=== PATIENT | male | born 1995 | race Caucasian/White ===

== ENCOUNTER 2021-09-24 11:42 | Emergency (ER) | payer OTHER | END 2021-09-24 12:35 | disposition home or self-care (01) | LOC: MW.ED 11:42 | DX: S82.392A Other fracture of lower end of left tibia, initial encounter for closed fracture (principal); W18.30XA Fall on same level, unspecified, initial encounter | CPT/HCPCS: 29515; 73610-26-LT; 73610-LT; 99283-25 ==

== ENCOUNTER 2021-10-01 08:42 | Day surgery (SDC) | payer OTHER ==
[~2021-10-01 08:42] MED LIST: Albuterol 0.083% 2.5 MG/3 ML Neb Soln NEB PRN; HYDROmorphone 1 MG/ML Syringe IVPUSH PRN; Lactated Ringers 1,000 ML IV SCH; Metoclopramide 10 MG/2 ML SDV IVPUSH PRN; Morphine 4 MG/ML VIAL IVPUSH PRN; Naloxone 0.4 MG/ML SDV IVPUSH PRN; Ondansetron 4 MG/2 ML SDV IVPUSH PRN; Ropivacaine/Ketorolac/Ketamine 100-15-30/50 ML Syringe INJECT ONE; Scopolamine 1.5 MG Transdermal Patch ONE; ceFAZolin 2 GM in Premix Bag 1 BAG IV SCH; fentaNYL 100 MCG/2 ML SDV IVPUSH PRN; fentaNYL 100 MCG/2 ML SDV ONE
[2021-10-01] MEDS ORDERED: Propofol 200 MG/20 ML SDV ONE (08:54)
[2021-10-01] MEDS ORDERED: fentaNYL 100 MCG/2 ML SDV ONE (08:54)
[2021-10-01] MEDS ORDERED: Midazolam 1 MG/ML 2 ML SDV ONE (08:55)
[2021-10-01] MEDS ORDERED: ceFAZolin 1 GM Vial ONE (09:47)
[2021-10-01] MEDS ORDERED: Octyl 2-Cyanoacrylate 1 Tube ONE (09:48)
[2021-10-01] MEDS ORDERED: Bupivacaine 0.25%/EPINEPHrine 1:200,000 10 ML SDV ONE (09:48)
[2021-10-01] MEDS ORDERED: Rocuronium 100 MG/10 ML MDV ONE (10:25)
[2021-10-01] MEDS ORDERED: HYDROmorphone 2 MG/ML Syringe ONE ×2 (11:11→11:37)
[2021-10-01] MEDS ORDERED: Ondansetron 4 MG/2 ML SDV ONE (11:15)
[2021-10-01] MEDS ORDERED: Ketorolac 30 MG/ML SDV ONE (11:15)
[2021-10-01] MEDS ORDERED: Acetaminophen/oxyCODONE 325-5 MG Tab PO ONE (12:28)
== END 2021-10-01 13:10 | disposition home or self-care (01) ==
LOC: MW.SDS 08:42
PROVIDERS: ATTEND Orthopaedic Surgery
DX: S82.52XA Displaced fracture of medial malleolus of left tibia, initial encounter for closed fracture (principal); Z79.899 Other long term (current) drug therapy
CPT/HCPCS: 76000; 76000-26; A9270-GY; C1713; C1769; J0690; J1170; J1885; J2250; J2405; J2704; J3010; J3490; J7120

== ENCOUNTER 2024-02-11 01:51 | Emergency (ER) | payer OTHER | END 2024-02-11 03:12 | disposition home or self-care (01) | LOC: MW.ED 01:51 | DX: L03.114 Cellulitis of left upper limb (principal); F17.210 Nicotine dependence, cigarettes, uncomplicated | CPT/HCPCS: 99283 ==

== ENCOUNTER 2025-04-03 16:14 | Emergency (ER) | payer SELFPAY ==
[2025-04-03 16:36] LABS: BASOPHILS ABSOLUTE AUTO 0.04 K/uL (0.00-0.20); BASOPHILS PERCENT AUTO 0.4 % (0.0-1.0); EOSINOPHILS ABSOLUTE AUTO 0.53 K/uL (0.00-0.45); EOSINOPHILS PERCENT AUTO 4.8 % (0.0-6.0); IMMATURE GRAN ABSOLUTE AUTO 0.08 K/uL (0.00-0.05); IMMATURE GRAN PERCENT AUTO 0.7 % (0.0-0.4); LYMPHOCYTES ABSOLUTE AUTO 2.40 K/uL (1.00-4.80); LYMPHOCYTES PERCENT AUTO 21.8 % (24.0-44.0); MEAN PLATELET VOLUME 10.0 fL (9.4-12.4); MONOCYTES ABSOLUTE AUTO 0.67 K/uL (0.00-0.80); MONOCYTES PERCENT AUTO 6.1 % (0.0-8.0); NEUTROPHILS ABSOLUTE AUTO 7.29 K/uL (1.80-7.70); NEUTROPHILS PERCENT AUTO 66.2 % (41.0-71.0); NRBC ABSOLUTE 0.00 K/uL (0.00-0.02); NRBC PERCENT 0.0 /100WBC (0.0-0.2); PLATELET COUNT,PLT 349 K/uL (150-400); RED BLOOD CELL COUNT 4.92 M/uL (4.52-5.90); WHITE BLOOD CELL COUNT,WBC 11.01 K/uL (3.9-11.3)
[2025-04-03] MEDS: LORazepam 2 MG/ML SDV IVPUSH ONE ×3 (16:40→17:06)
[2025-04-03 17:13] LABS: A/G RATIO 1.0 (0.9-1.6); ALANINE AMINOTRANSFERASE,ALT 121.0 IU/L (14-63); ASPARTATE AMNIOTRANSFERASE,AST 63.0 IU/L (15-37); BILIRUBIN TOTAL 0.2 mg/dL (0.2-1.0); BLOOD UREA NITROGEN,BUN 15.0 mg/dL (7.0-18.0); CARBON DIOXIDE,CO2 29.9 mmol/L (21.0-32.0); CHLORIDE,CL 103.0 mmol/L (98-107); CREATININE 0.9 mg/dL (0.8-1.3); EST CRCL DRUG DOSING (CG) 126.17 mL/min; GLUCOSE RANDOM 134.0 mg/dL (74-106); POTASSIUM,K 3.8 mmol/L (3.5-5.1); PRO B-TYPE NATRIUR PEPT,BNPPRO 9.0 pg/mL (0-125); PROTEIN TOTAL,TP 6.5 g/dL (6.4-8.2); SODIUM,NA 140.0 mmol/L (136-148)
[2025-04-03 17:33] LABS: ESTIMATED GFR 119.0 mL/min (>60)
[2025-04-03] MEDS: Iopamidol 755 MG/ML 500 ML Multipack Bottle IVPUSH STA (17:53)
[2025-04-03] MEDS: methylPREDNISolone Sodium Succinate 125 MG/2 ML SDV IVPUSH ONE (18:32)
[2025-04-03] MEDS: Ketorolac 30 MG/ML SDV IVPUSH ONE (18:32)
== END 2025-04-03 19:53 | disposition home or self-care (01) ==
LOC: MW.ED 16:14
DX: J20.9 Acute bronchitis, unspecified (principal); G89.29 Other chronic pain; F15.10 Other stimulant abuse, uncomplicated; R45.89 Other symptoms and signs involving emotional state; R74.8 Abnormal levels of other serum enzymes; R79.1 Abnormal coagulation profile; Z71.89 Other specified counseling
CPT/HCPCS: 36415; 71045; 71275; 80053; 80307; 83880; 84484; 85025; 85379; 87428; 93005; 96361; 96374; 96375; 99285; A9270; J1885; J2060; J2919; J7030; Q9967; 93010; 99284